=== PATIENT | female | born 1975 | race Two or more races ===

== ENCOUNTER → 2017-02-10 | Outpatient (CLI) | payer OTHER ==
[~2017-02-10] MED LIST: BACTRIM DS 8001 TA1 PO; FLAGYL 500MG.500 MG PO; FLEXERIL10 MG PO; HYDROCODONE 7.51 TAB PO; KEFLEX 500MG.500 MG PO; LEVOTHYROXINE PO; MOTRIN 600MG.600 MG PO; PRENATAL PLUS1 TA1 PO; THYROID; TYLENOL ES500 MG PO; VICODIN 5/500 T1 TAB PO; VOLTAREN75 MG PO
--- NOTE | 2017-02-10 17:20 | RADIOLOGY REPORT PS360 ---
US TRANSVAGINAL PREG Ordering Physician: Josr Gillette MD Patient Age: 41 years: Female HISTORY: BLEEDING EARLY PRGNANCY 3 days bleeding TECHNIQUE: Transvaginal pelvic ultrasoundmw COMPARISON :None relevant to this . FINDINGS Single viable intrauterine gestation. . Amnion chorion identified. Yolk sac well-defined embryo cardiac activity observed. The cervix is long measuring up to 3.1 seem in length. Minimal fluid seems to outline the cervical canal which may reflect this history of bleeding the cervix however appears to be closed at the internal os. No fluid seen here. Average ultrasound age 10 weeks 0 day. JUNIOR by ultrasound 09-08-17 Gestational age 7 weeks 1 day based on LMP [birth year]/22/1969. measurements CRL equals 3.05cm = 10 weeks 0 days. Yolk sac 0.67 cm Heartbeat. 146 BPM Cardiac activity documented on cine loop [place] but adequate Adequate amount of amniotic fluid. Left ovaries more so than left was difficult to visualize. Not well seen. Left ovary but difficult to visualize measuring 4.2 x 2.5 x 3 cm. Likely containing a vague corpus luteum cystl measuring up to 2.4 cm.. Right ovary measuring 3.4 x 2.4 x 2.1 cm. IMPRESSION: Single viable intrauterine gestation Average ultrasound weeks 10 days 0 days based on CRL. . The cervix long and closed internal os. There may be some scant fluid along the mid and distal cervical canal which may reflect this history of bleeding. 1.
== END ==
LOC: RAD 12:08
DX: O20.9 Hemorrhage in early pregnancy, unspecified (principal)

== ENCOUNTER 2017-02-19 16:44 | Emergency (ER) | payer OTHER ==
[~2017-02-19] VITALS: Ht 160 cm; Wt 90.7 kg
--- OUTSIDE RECORDS SUMMARY | 2017-02-19 16:59 | External Medical Summary Rpt | CCD ---
Author Author Conduent Organization Conduent Address Unknown Phone Unavailable Purpose Continuity of Care Document - through 2016
--- OUTSIDE RECORDS SUMMARY | 2017-02-19 16:59 | External Medical Summary Rpt | CCD ---
Author Author , FREDDY HAYES Address Unknown Phone [email or web address] Care Team Providers Care Transplant Worker Name Role Phone LANIE SETH MD, Unavailable Unavailable LANIE SETH MD Purpose Continuity of Care Document - 06-10-2012 through 2016 Problems Code Diagnosis DOS Provider Status 617.9 617.9 07-03-2012 [facility] Allergies, Adverse Reactions, Alerts Type Allergy to substance Adverse Reaction to Substance Substance Reaction Severity NO KNOWN ALLERGIES Unknown Unknown Medications Na ND Rx Da Fi Fi Am Da Di Ph RX Ph St me C No te ll ll ou ys ag ar # ys at rm s nt no ma ic us Or Da si cy ia de te s n re d SO 00 04 0 No DI 40 -2 UM 97 6- Lo 98 20 ng CH 30 13 er LO 9 RI Ac DE ti ve 0. 9% SO ROBERT TI ON Sa 63 04 0 No li 80 -2 ne 70 6- Lo 10 20 ng Fl 07 13 er us 5 h Ac 10 ti ML ve Sy ri ng e ON 00 04 0 No DA 64 -2 NS 16 6- Lo ET 08 20 ng RO 02 13 er N 5 HC Ac L ti 4 ve MG /2 ML AL Mo 00 04 0 No rp 40 -2 hi 91 6- Lo ne 25 20 ng 83 13 er 4M 0 G/ Ac Ml ti ve Sy ri ng e Vital Signs 07-03-2012 20:00 Name Value Interpretat Reference Comment ion Range Body 97.7 [degF] Temperature BP 61 mm[Hg] Diastolic BP Systolic 118 mm[Hg] Heart 64 /min Rate/Pulse O2% 98 % Respiratory 18 /min Rate 07-03-2012 19:19 Name Value Interpretat Reference Comment ion Range Body 97.7 [degF] Temperature 07-03-2012 18:30 Name Value Interpretat Reference Comment ion Range BP 57 mm[Hg] Diastolic BP Systolic 102 mm[Hg] Heart 56 /min Rate/Pulse O2% 98 % Respiratory 18 /min Rate 06-11-2012 00:37 Name Value Interpretat Reference Comment ion Range Body 98.2 [degF] Temperature BP 80 mm[Hg] Diastolic BP Systolic 136 mm[Hg] Heart 70 /min Rate/Pulse O2% 97 % Respiratory 20 /min Rate 06-10-2012 23:52 Name Value Interpretat Reference Comment ion Range BP 81 mm[Hg] Diastolic BP Systolic 134 mm[Hg] Heart 73 /min Rate/Pulse O2% 98 % Respiratory 20 /min Rate Results Labs Lab Lab Date Result Refere Interp Status Commen Order Detail nces retati t Range on CHLAMYDIA AND GONORRHEA TESTING (06-06-2015 10:23) Chlamyd NEGATIV complet ia 016 E ed trachom 10:23 atis rRNA [Presen ce] in Unspeci fied specime n by Probe & target amplifi cation method Neisser NEGATIV complet ia 016 E ed gonorrh 10:23 oeae rRNA [Presen ce] in Unspeci fied specime n by Probe & target amplifi cation method CHLAMYDIA AND GONORRHEA TESTING (06-06-2015 10:23) COLLECT M. F. complet OR 016 MILLER, ed 10:23 FORGING MACHINE HAND ETHNICI HISPANI complet TY 016 C WHITE ed 10:23 KIT complet EXPIRAT 016 6 ed ION 10:23 DATE SYMPTOM NO complet S 016 ed 10:23 REASON REVISIT complet FOR 016 /ANNUAL ed REQUEST 10:23 FAMILY PLANNIN G VISIT SPECIME URINE complet N 016 ed SOURCE 10:23 PREGNAN NO complet T 016 ed 10:23 CHART [id number] complet NUMBER 016 78 ed 10:23 Chlamyd Pending complet ia 016 ed trachom 10:23 atis rRNA [Presen ce] in Unspeci fied specime n by Probe & target amplifi cation method Neisser Pending complet ia 016 ed gonorrh 10:23 oeae rRNA [Presen ce] in Unspeci fied specime n by Probe & target amplifi cation method CHLAMYDIA AND GONORRHEA TESTING (01-19-2013 09:30) Chlamyd -- NEGATIV complet ia 013 E ed trachom 09:30 atis rRNA [Presen ce] in Unspeci fied specime n by Probe & target amplifi cation method Neisser NEGATIV complet ia 013 E ed gonorrh 09:30 oeae rRNA [Presen ce] in Unspeci fied specime n by Probe & target amplifi cation method CHLAMYDIA AND GONORRHEA TESTING (01-19-2013 09:30) COLLECT PT/T.SW complet OR 013 ITZER ed 09:30 RN ETHNICI HISPANI complet TY 013 C WHITE ed 09:30 KIT 05-07-13 complet EXPIRAT 013 ed ION 09:30 DATE SYMPTOM NO complet S 013 ed 09:30 REASON REVISIT complet FOR 013 /ANNUAL ed REQUEST 09:30 FAMILY PLANNIN G VISIT SPECIME URINE complet N 013 ed SOURCE 09:30 PREGNAN NO complet T 013 ed 09:30 CHART NA complet NUMBER 013 ed 09:30 Chlamyd Pending complet ia 013 ed trachom 09:30 atis rRNA [Presen ce] in Unspeci fied specime n by Probe & target amplifi cation method Neisser Pending complet ia 013 ed gonorrh 09:30 oeae rRNA [Presen ce] in Unspeci fied specime n by Probe & target amplifi cation method BASIC METABOLIC PANEL (07-03-2012 18:18) Glucose 105 74-106 complet 013 mg/dL ed Bld-mCn 18:18 c BUN 7 mg/dL 7-18 complet Bld-mCn 013 ed c 18:18 Creat 0.7 0.6-1.0 complet SerPl-m 013 mg/dL ed Cnc 18:18 ESTIMAT 153 50-200 complet ED 013 ML/MIN ed CREATIN 18:18 INE CLEARAN CE GFR 95 59- complet (ESTIMA 013 ML/MIN ed CONCHIS) 18:18 Sodium 139 136-145 complet SerPl-s 013 mmoL/L ed Cnc 18:18 Potassi 07-03-2 3.9 3.5-5.1 complet um 013 mmoL/L ed SerPl-s 18:18 Cnc Chlorid 101 98-107 complet e 013 mmoL/L ed SerPl-s 18:18 Cnc CO2 30 21.0-32 complet SerPl-s 013 mmoL/L .0 ed Cnc 18:18 Calcium 07-03-2 9.1 8.5-10. complet 013 mg/dL 1 ed SerPl-m 18:18 Cnc CBC with AUTO DIFF (07-03-2012 18:18) WBC # 07-03-2 5.7 4.8-10. complet Bld 013 K/MM3 8 ed Auto 18:18 RBC # 07-03-2 4.23 4.2-5.4 complet Bld 013 M/mm3 ed Auto 18:18 Hgb 07-03-2 12.9 12.2-16 complet Bld-mCn 013 g/dL .2 ed c 18:18 Hct Fr 38.4 % 37.0-47 complet Bld 013 .0 ed 18:18 MCV RBC 07-03- 90.7 fl 82.2-97 complet 013 .8 ed 18:18 MCH RBC 07-03-2 30.5 pg 27-31.2 complet Qn 013 ed Auto 18:18 MEAN 07-03- 33.6 31.8-35 complet CORPUSC 013 g/dl .4 ed ULAR 18:18 HGB CONC RDW RBC 07-03-2 13.3 % 11.5-17 complet Auto 013 .5 ed 18:18 Platele 07-03-2 269 142-424 complet t Bld 013 K/mm3 ed Ql 18:18 Manual MEAN 07-03-2 7.1 fl 7.4-10. complet PLATELE 013 4 ed T 18:18 VOLUME Granulo 07-03-2 50.3 % 37.0-80 complet cytes 013 .0 ed Fr Bld 18:18 Auto LYMPH % 07-03-2 38.7 % 10-50.0 complet 013 ed 18:18 Monocyt 07-03-2 7.5 % 1.7-9.3 complet es Fr 013 ed Bld 18:18 Auto Eosinop 04-26-2 2.8 % 0.1-12. complet hil Fr 013 0 ed Bld 18:18 Auto Basophi 04-26-2 0.8 % 0.1-2.0 complet ls Fr 013 ed Bld 18:18 Auto Granulo -26-2 2.9 1.8-7.8 complet cytes # 013 K/mm3 ed Bld 18:18 Auto Lymphoc -26-2 2.2 0.7-4.5 complet ytes Fr 013 K/mm3 ed Bld 18:18 Auto Monocyt 04-26-2 0.4 0.1-1.0 complet es # 013 K/mm3 ed Bld 18:18 Auto Eosinop -26-2 0.2 0.0-0.4 complet hil # 013 K/mm3 ed Bld 18:18 Auto Basophi -26-2 0.1 0-0.2 complet ls # 013 K/MM3 ed Bld 18:18 Auto URINALYSIS/COMPLETE (07-03-2012 18:08) URINE 07-03-2 RED YELLOW complet COLOR 013 ed 18:08 URINE -26-2 CLOUDY CLEAR complet APPEARA 013 ed NCE 18:08 URINE -26-2 NEGATIV NEG complet GLUCOSE 013 E ed - 18:08 DIPSTIC K URINE --2 NEGATIV NEG complet BILIRUB 013 E ed IN - 18:08 DIPSTIC K URINE -26-2 NEGATIV NEG complet KETONE 013 E mg/dL ed 18:08 URINE 07-03-2 1.010 1.005-1 complet SPECIFI 013 UNK .030 ed C 18:08 GRAVITY URINE --2 3+ NEG complet BLOOD 013 ed 18:08 URINE -26-2 6.0 UNK 5.0-8.5 complet PH 013 ed 18:08 URINE --2 1+ NEG complet PROTEIN 013 mg/dL ed - 18:08 DIPSTIC K URINE -26-2 0.2 NEG complet UROBILI 013 E.U./dL ed NOGEN - 18:08 DIPSTIC K URINE -26-2 NEGATIV NEG complet NITRATE 013 E ed - 18:08 DIPSTIC K URINE -26-2 NEGATIV NEG complet LEUK 013 E ed ESTERAS 18:08 E URINE 07-03-2 TNTC 0 complet RBC 013 rbc/hpf ed 18:08 URINE 07-03-2 OCC 0-5 complet SQUAMOU 013 #/hpf ed S CELLS 18:08 B-HCG SerPl EIA 3rd IS-aCnc (06-10-2012 23:45) B-HCG 03-2 44729.3 complet SerPl 013 mIU/ML ed EIA 3rd 23:45 IS-aCnc CBC with AUTO DIFF (06-10-2012 23:45) WBC # 04-03-2 8.7 4.8-10. complet Bld 013 K/MM3 8 ed Auto 23:45 RBC # 04-03-2 4.43 4.2-5.4 complet Bld 013 M/mm3 ed Auto 23:45 Hgb 04-03-2 13.3 12.2-16 complet Bld-mCn 013 g/dL .2 ed c 23:45 Hct Fr -03-2 39.8 % 37.0-47 complet Bld 013 .0 ed 23:45 MCV RBC 04-03-2 89.8 fl 82.2-97 complet 013 .8 ed 23:45 MCH RBC 04-03-2 30.1 pg 27-31.2 complet Qn 013 ed Auto 23:45 MEAN 04-03-2 33.5 31.8-35 complet CORPUSC 013 g/dl .4 ed ULAR 23:45 HGB CONC RDW RBC 04-03-2 13.7 % 11.5-17 complet Auto 013 .5 ed 23:45 Platele 04-03-2 291 142-424 complet t Bld 013 K/mm3 ed Ql 23:45 Manual MEAN 04-03-2 6.7 fl 7.4-10. complet PLATELE 013 4 ed T 23:45 VOLUME Granulo 04-03-2 55.1 % 37.0-80 complet cytes 013 .0 ed Fr Bld 23:45 Auto LYMPH % 04-03-2 34.4 % 10-50.0 complet 013 ed 23:45 Monocyt 04-03-2 6.2 % 1.7-9.3 complet es Fr 013 ed Bld 23:45 Auto Eosinop 04-03-2 3.5 % 0.1-12. complet hil Fr 013 0 ed Bld 23:45 Auto Basophi 04-03-2 0.7 % 0.1-2.0 complet ls Fr 013 ed Bld 23:45 Auto Granulo 04-03-2 4.8 1.8-7.8 complet cytes # 013 K/mm3 ed Bld 23:45 Auto Lymphoc 04-03-2 3.0 0.7-4.5 complet ytes Fr 013 K/mm3 ed Bld 23:45 Auto Monocyt 04-03-2 0.5 0.1-1.0 complet es # 013 K/mm3 ed Bld 23:45 Auto Eosinop 04-03-2 0.3 0.0-0.4 complet hil # 013 K/mm3 ed Bld 23:45 Auto Basophi 04-03-2 0.1 0-0.2 complet ls # 013 K/MM3 ed Bld 23:45 Auto B-HCG Ur Ql (06-10-2012 22:55) B-HCG 04-03-2 POSITIV NEG complet Ur Ql 013 E ed 22:55 URINALYSIS/COMPLETE (06-10-2012 22:55) URINE 04-03-2 RED YELLOW complet COLOR 013 ed 22:55 URINE 04-03-2 Clear CLEAR complet APPEARA 013 ed NCE 22:55 URINE 04-03-2 NEGATIV NEG complet GLUCOSE 013 E ed - 22:55 DIPSTIC K URINE 04-03-2 NEGATIV NEG complet BILIRUB 013 E ed IN - 22:55 DIPSTIC K URINE 04-03-2 NEGATIV NEG complet KETONE 013 E mg/dL ed 22:55 URINE 04-03-2 Less 1.005-1 complet SPECIFI 013 than or .030 ed C 22:55 equal GRAVITY to 1.005 URINE 04-03-2 3+ NEG complet BLOOD 013 ed 22:55 URINE 04-03-2 6.0 UNK 5.0-8.5 complet PH 013 ed 22:55 URINE 04-03-2 1+ NEG complet PROTEIN 013 mg/dL ed - 22:55 DIPSTIC K URINE 04-03-2 0.2 NEG complet UROBILI 013 E.U./dL ed NOGEN - 22:55 DIPSTIC K URINE 04-03-2 NEGATIV NEG complet NITRATE 013 E ed - 22:55 DIPSTIC K URINE 04-03-2 TRACE NEG complet LEUK 013 ed ESTERAS 22:55 E URINE 04-03-2 5-10 0 complet RBC 013 rbc/hpf ed 22:55 URINE 3-5 O complet WBC 013 wbc/hpf ed 22:55 URINE 3-5 0-5 complet SQUAMOU 013 #/hpf ed S CELLS 22:55 URINE 1+ O complet BACTERI 013 ed A 22:55 PROFILE (06-10-2012 10:30) Hepatit NON-DELFINO complet is B 013 CTIVE ed virus 10:30 surface Ag [Presen ce] in Serum by Immunoa ssay PROFILE (06-10-2012 10:30) Rubella 4.09 complet virus 013 INDEX ed IgG Ab 10:30 [Units/ volume] in Serum by Immunoa ssay RUB CONSIST >=1.1 complet INTERPR 013 ENT INDEX ed ETATION 10:30 WITH IMMUNIT Y- IMMUNIT Y PROFILE (06-10-2012 10:30) Trepone NON-DELFINO complet ma 013 CTIVE ed pallidu 10:30 m IgG Ab [Presen ce] in Serum by Immunoa ssay PROFILE (06-10-2012 10:30) COLLECT NA complet OR 013 ed 10:30 ETHNICI HISPANI complet TY 013 C ed 10:30 SPECIME BLOOD complet N 013 ed SOURCE 10:30 GESTATI 7 complet ON 013 ed 10:30 CHART NA complet NUMBER 013 ed 10:30 Hepatit Pending complet is B 013 ed virus 10:30 surface Ag [Presen ce] in Serum by Immunoa ssay Trepone Pending complet ma 013 ed pallidu 10:30 m IgG Ab [Presen ce] in Serum by Immunoa ssay Rubella Pending complet virus 013 ed IgG Ab 10:30 [Units/ volume] in Serum by Immunoa ssay Encounters Encounter Start End Date Code Location Performer Type Date Emergency TRACEY SETH MD (ER) 3 17:53 3 20:05 [facility] TRACEY Siegel MD (ER) 3 23:19 3 00:41 [facility]
--- OUTSIDE RECORDS SUMMARY | 2017-02-19 16:59 | External Medical Summary Rpt | CCD ---
Demographics Preferred Language Marshallese Marital Status Unknown Shinto Affiliation Unknown Race Unknown Ethnic Group Unknown Author Author , FREDDY HAYES Address Unknown Phone [email or web address] Immunization Name Date Rout CVX Reac Dose Comm Prov Is Faci e tion ent ider Refu lity Give sed n Tdap 06-3 115 999 Hist H149 No H149 , 0-20 oric Adso 06 al rbed Info rmat ion - Sour ce Unsp ecif ied
--- OUTSIDE RECORDS SUMMARY | 2017-02-19 16:59 | External Medical Summary Rpt | CCD ---
Author Author , FREDDY HAYES Address Unknown Phone [email or web address] Care Team Providers Care High Density Press Laborer Name Role Phone LANIE SETH MD, Unavailable Unavailable LANIE SETH MD Purpose Continuity of Care Document - 06-10-2012 through 2016 Problems Code Diagnosis DOS Provider Status 617.9 617.9 07-03-2012 [facility] Allergies, Adverse Reactions, Alerts Type Allergy to [...] F. 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 TRACEY Siegel MD (ER) 3 23:19 3 00:41 [facility]
--- OUTSIDE RECORDS SUMMARY | 2017-02-19 16:59 | External Medical Summary Rpt | CCD ---
Demographics Preferred Language Ecuadorean Marital Status Unknown Confucianist Affiliation Unknown Race Unknown Ethnic Group Unknown Author Author , FREDDY HAYES Address Unknown Phone [email or web address] Immunization Name Date Rout CVX Reac Dose Comm Prov Is Faci e tion ent ider Refu lity Give sed n Tdap 06-3 115 999 Hist H149 No H149 , 0-20 oric Adso 06 al rbed Info rmat ion - Sour ce Unsp ecif ied
--- OUTSIDE RECORDS SUMMARY | 2017-02-19 17:00 | External Medical Summary Rpt ---
Author Author FREDDY Augustine, [employer] Organization [employer] Address Unknown Phone Unavailable Results CHLAMYDIA AND GONORRHEA TESTING Observa Value Referen Units Interpr Notes Date tion ce etation Range COLLECT M. F. 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 tion in tion in tion in tion in 10:23 source source source source AM data data data data ETHNICI HISPANI No No No No Jun 05 TY C WHITE informa informa informa informa 2016 tion in tion in tion in tion in 10:23 source source source source AM data data data data KIT No No No No Jun 05 EXPIRAT 6 informa informa informa informa 2016 ION tion in tion in tion in tion in 10:23 DATE source source source source AM data data data data SYMPTOM NO No No No No Jun 05 S informa informa informa informa 2016 tion in tion in tion in tion in 10:23 source source source source AM data data data data REASON REVISIT No No No No Jun 05 FOR /ANNUAL informa informa informa informa 2016 REQUEST FAMILY tion in tion in tion in tion in 10:23 source source source source AM PLANNIN data data data data G VISIT SPECIME URINE No No No No Jun 05 N informa informa informa informa 2016 SOURCE tion in tion in tion in tion in 10:23 source source source source AM data data data data PREGNAN NO No No No No Jun 05 T informa informa informa informa 2016 tion in tion in tion in tion in 10:23 source source source source AM data data data data CHART [id number] No No No No Jun 05 NUMBER 78 informa informa informa informa 2016 tion in tion in tion in tion in 10:23 source source source source AM data data data data Chlamyd NEGATIV No No No NEGATIV Jun 05 ia E informa informa informa E 2016 trachom tion in tion in tion in RESULT= 10:23 atis source source source WITHIN AM rRNA data data data NORMAL [Presen ce] in LIMITSP Unspeci OSITIVE fied specime RESULT= n by Probe & ABNORMA target LEQUIVO MAY amplifi RESULT= cation method INDETER MINATEU NSATISF ACTORY RESULT= INVALID Neisser NEGATIV No No No NEGATIV Jun 05 ia E informa informa informa E 2016 gonorrh tion in tion in tion in RESULT= 10:23 oeae source source source WITHIN AM rRNA data data data NORMAL [Presen ce] in LIMITSP Unspeci OSITIVE fied specime RESULT= n by Probe & ABNORMA target LEQUIVO MAY amplifi RESULT= cation method INDETER MINATEU NSATISF ACTORY RESULT= INVALID THE APTIMA COMBO 2 ASSAY IS NOT INTENDE D FOR THE EVALUAT ION OF SUSPECT EDSEXUA L ABUSE OR FOR OTHER MEDICO- LEGAL INDICAT IONS. FOR THOSE PATIENT S FORWHOM A FALSE POSITIV E RESULT MAY HAVE ADVERSE PSYCHO- SOCIAL IMPACT, [facility] MM[facility] RET[facility] NG.\.br \This report contain s patient informa tion that must be protect ed in accorda nce with the Health Insuran ce Portabi lity and Account ability Act. CHLAMYDIA AND GONORRHEA TESTING Observa Value Referen Units Interpr Notes Date tion ce etation Range COLLECT M. F. 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 tion in tion in tion in tion in 10:23 source source source source AM data data data data ETHNICI HISPANI No No No No Jun 05 TY C WHITE informa informa informa informa 2016 tion in tion in tion in tion in 10:23 source source source source AM data data data data KIT No No No No Jun 05 EXPIRAT 6 informa informa informa informa 2016 ION tion in tion in tion in tion in 10:23 DATE source source source source AM data data data data SYMPTOM NO No No No No Jun 05 S informa informa informa informa 2016 tion in tion in tion in tion in 10:23 source source source source AM data data data data REASON REVISIT No No No No Jun 05 FOR /ANNUAL informa informa informa informa 2016 REQUEST FAMILY tion in tion in tion in tion in 10:23 source source source source AM PLANNIN data data data data G VISIT SPECIME URINE No No No No Jun 05 N informa informa informa informa 2016 SOURCE tion in tion in tion in tion in 10:23 source source source source AM data data data data PREGNAN NO No No No No Jun 05 T informa informa informa informa 2016 tion in tion in tion in tion in 10:23 source source source source AM data data data data CHART [id number] No No No No Jun 05 NUMBER 78 informa informa informa informa 2016 tion in tion in tion in tion in 10:23 source source source source AM data data data data Chlamyd Pending No No No No Jun 05 ia informa informa informa informa 2016 trachom tion in tion in tion in tion in 10:23 atis source source source source AM rRNA data data data data [Presen ce] in Unspeci fied specime n by Probe & target amplifi cation method Neisser Pending No No No \.br\Th Jun 05 ia informa informa informa is 2016 gonorrh tion in tion in tion in report 10:23 oeae source source source contain AM rRNA data data data s [Presen patient ce] in Unspeci informa fied tion specime that n by must be Probe & target protect ed in amplifi accorda cation nce method with the Health Insuran ce Portabi lity and Account ability Act. CHLAMYDIA AND GONORRHEA TESTING Observa Value Referen Units Interpr Notes Date tion ce etation Range COLLECT PT/T.SW No No No No Jan 19 OR ITZER informa informa informa informa 2013 RN tion in tion in tion in tion in 9:30 AM source source source source data data data data ETHNICI HISPANI No No No No Jan 19 TY C WHITE informa informa informa informa 2013 tion in tion in tion in tion in 9:30 AM source source source source data data data data KIT 2-28-14 No No No No Jan 19 EXPIRAT informa informa informa informa 2013 ION tion in tion in tion in tion in 9:30 AM DATE source source source source data data data data SYMPTOM NO No No No No Jan 19 S informa informa informa informa 2013 tion in tion in tion in tion in 9:30 AM source source source source data data data data REASON REVISIT No No No No Jan 19 FOR /ANNUAL informa informa informa informa 2013 REQUEST FAMILY tion in tion in tion in tion in 9:30 AM source source source source PLANNIN data data data data G VISIT SPECIME URINE No No No No Jan 19 N informa informa informa informa 2013 SOURCE tion in tion in tion in tion in 9:30 AM source source source source data data data data PREGNAN NO No No No No Jan 19 T informa informa informa informa 2013 tion in tion in tion in tion in 9:30 AM source source source source data data data data CHART NA No No No No Jan 19 NUMBER informa informa informa informa 2013 tion in tion in tion in tion in 9:30 AM source source source source data data data data Chlamyd NEGATIV No No No NEGATIV Jan 19 ia E informa informa informa E 2013 trachom tion in tion in tion in RESULT= 9:30 AM atis source source source WITHIN rRNA data data data NORMAL [Presen ce] in LIMITSP Unspeci OSITIVE fied specime RESULT= n by Probe & ABNORMA target LEQUIVO MAY amplifi RESULT= cation method INDETER MINATEU NSATISF ACTORY RESULT= INVALID Neisser NEGATIV No No No NEGATIV Jan 19 ia E informa informa informa E 2013 gonorrh tion in tion in tion in RESULT= 9:30 AM oeae source source source WITHIN rRNA data data data NORMAL [Presen ce] in LIMITSP Unspeci OSITIVE fied specime RESULT= n by Probe & ABNORMA target LEQUIVO MAY amplifi RESULT= cation method INDETER MINATEU NSATISF ACTORY RESULT= INVALID THE APTIMA COMBO 2 ASSAY IS NOT INTENDE D FOR THE EVALUAT ION OF SUSPECT EDSEXUA L ABUSE OR FOR OTHER MEDICO- LEGAL INDICAT IONS. FOR THOSE PATIENT S FORWHOM A FALSE POSITIV E RESULT MAY HAVE ADVERSE PSYCHO- SOCIAL IMPACT, [facility] MM[facility]DS RETESTI NG.\.br \This report contain s patient informa tion that must be protect ed in accorda nce with the Health Insuran ce Portcelso lity and Account ability Act. CHLAMYDIA AND GONORRHEA TESTING Observa Value Referen Units Interpr Notes Date tion ce etation Range COLLECT PT/T.SW No No No No Jan 19 OR ITZER informa informa informa informa 2013 RN tion in tion in tion in tion in 9:30 AM source source source source data data data data ETHNICI HISPANI No No No No Jan 19 TY C WHITE informa informa informa informa 2013 tion in tion in tion in tion in 9:30 AM source source source source data data data data KIT 2-28-14 No No No No Jan 19 EXPIRAT informa informa informa informa 2013 ION tion in tion in tion in tion in 9:30 AM DATE source source source source data data data data SYMPTOM NO No No No No Jan 19 S informa informa informa informa 2013 tion in tion in tion in tion in 9:30 AM source source source source data data data data REASON REVISIT No No No No Jan 19 FOR /ANNUAL informa informa informa informa 2013 REQUEST FAMILY tion in tion in tion in tion in 9:30 AM source source source source PLANNIN data data data data G VISIT SPECIME URINE No No No No Jan 19 N informa informa informa informa 2013 SOURCE tion in tion in tion in tion in 9:30 AM source source source source data data data data PREGNAN NO No No No No Jan 19 T informa informa informa informa 2013 tion in tion in tion in tion in 9:30 AM source source source source data data data data CHART NA No No No No Jan 19 NUMBER informa informa informa informa 2013 tion in tion in tion in tion in 9:30 AM source source source source data data data data Chlamyd Pending No No No No Jan 19 ia informa informa informa informa 2013 trachom tion in tion in tion in tion in 9:30 AM atis source source source source rRNA data data data data [Presen ce] in Unspeci fied specime n by Probe & target amplifi cation method Neisser Pending No No No \.br\Jan 19 ia informa informa informa is 2013 gonorrh tion in tion in tion in report 9:30 AM oeae source source source contain rRNA data data data s [Presen patient ce] in Unspeci informa fied tion specime that n by must be Probe & target protect ed in amplifi accorda cation nce method with the Health Insuran ce Portabi lity and Account ability Act. PROFILE Observa Value Referen Units Interpr Notes Date tion ce etation Range COLLECT NA No No No No Apr 3 OR informa informa informa informa 2013 tion in tion in tion in tion in 10:30 source source source source AM data data data data ETHNICI HISPANI No No No No Apr 3 TY C informa informa informa informa 2013 tion in tion in tion in tion in 10:30 source source source source AM data data data data SPECIME BLOOD No No No No Apr 3 N informa informa informa informa 2013 SOURCE tion in tion in tion in tion in 10:30 source source source source AM data data data data GESTATI 7 No No No No Apr 3 ON informa informa informa informa 2013 tion in tion in tion in tion in 10:30 source source source source AM data data data data CHART NA No No No No Apr 3 NUMBER informa informa informa informa 2013 tion in tion in tion in tion in 10:30 source source source source AM data data data data Hepatit NON-DELFINO No No No METHOD Apr 3 is B CTIVE informa informa informa OF 2013 virus tion in tion in tion in ANALYSI 10:30 surface source source source S: AM Ag data data data EIANORM [Presen AL ce] in RANGE: Serum NON by REACTIV Immunoa E ssay Trepone NON-DELFINO No No No METHOD Apr 3 ma CTIVE informa informa informa OF 2013 pallidu tion in tion in tion in ANALYSI 10:30 m IgG source source source S: AM Ab data data data EIANORM [Presen AL ce] in RANGE: Serum NON-DELFINO by CTIVE Immunoa ssay Rubella 4.09 No No No METHOD Apr 3 virus INDEX informa informa informa OF 2013 IgG Ab tion in tion in tion in ANALYSI 10:30 [Units/ source source source S: EIA AM volume] data data data in Serum by Immunoa ssay RUB CONSIST >=1.1 No No \.br\Th Apr 3 INTERPR ENT INDEX informa informa is 2013 ETATION WITH tion in tion in report 10:30 IMMUNIT source source contain AM Y- data data s IMMUNIT patient Y informa tion that must be protect ed in accorda nce with the Health Insuran ce Portabi lity and Account ability Act. PROFILE Observa Value Referen Units Interpr Notes Date tion ce etation Range COLLECT NA No No No No Jun 3 OR informa informa informa informa 2013 tion in tion in tion in tion in 10:30 source source source source AM data data data data ETHNICI HISPANI No No No No Jun 3 TY C informa informa informa informa 2013 tion in tion in tion in tion in 10:30 source source source source AM data data data data SPECIME BLOOD No No No No Jun 3 N informa informa informa informa 2013 SOURCE tion in tion in tion in tion in 10:30 source source source source AM data data data data GESTATI 7 No No No No Jun 3 ON informa informa informa informa 2013 tion in tion in tion in tion in 10:30 source source source source AM data data data data CHART NA No No No No Jun 3 NUMBER informa informa informa informa 2013 tion in tion in tion in tion in 10:30 source source source source AM data data data data Hepatit Pending No No No No Jun 3 is B informa informa informa informa 2013 virus tion in tion in tion in tion in 10:30 surface source source source source AM Ag data data data data [Presen ce] in Serum by Immunoa ssay Trepone NON-DELFINO No No No METHOD Apr 3 ma CTIVE informa informa informa OF 2013 pallidu tion in tion in tion in ANALYSI 10:30 m IgG source source source S: AM Ab data data data EIANORM [Presen AL ce] in RANGE: Serum NON-DELFINO by CTIVE Immunoa ssay Rubella 4.09 No No No METHOD Apr 3 virus INDEX informa informa informa OF 2013 IgG Ab tion in tion in tion in ANALYSI 10:30 [Units/ source source source S: EIA AM volume] data data data in Serum by Immunoa ssay RUB CONSIST >=1.1 No No \.br\Th Apr 3 INTERPR ENT INDEX informa informa is 2013 ETATION WITH tion in tion in report 10:30 IMMUNIT source source contain AM Y- data data s IMMUNIT patient Y informa tion that must be protect ed in accorda nce with the Health Insuran ce Portabi lity and Account ability Act. PROFILE Observa Value Referen Units Interpr Notes Date tion ce etation Range COLLECT NA No No No No Apr 3 OR informa informa informa informa 2013 tion in tion in tion in tion in 10:30 source source source source AM data data data data ETHNICI HISPANI No No No No Apr 3 TY C informa informa informa informa 2013 tion in tion in tion in tion in 10:30 source source source source AM data data data data SPECIME BLOOD No No No No Apr 3 N informa informa informa informa 2013 SOURCE tion in tion in tion in tion in 10:30 source source source source AM data data data data GESTATI 7 No No No No Apr 3 ON informa informa informa informa 2013 tion in tion in tion in tion in 10:30 source source source source AM data data data data CHART NA No No No No Apr 3 NUMBER informa informa informa informa 2013 tion in tion in tion in tion in 10:30 source source source source AM data data data data Hepatit Pending No No No No Apr 3 is B informa informa informa informa 2013 virus tion in tion in tion in tion in 10:30 surface source source source source AM Ag data data data data [Presen ce] in Serum by Immunoa ssay Trepone NON-DELFINO No No No METHOD Apr 3 [address] CTIVE informa informa informa OF 2013 pallidu tion in tion in tion in ANALYSI 10:30 m IgG source source source S: AM Ab data data data EIANORM [Presen AL ce] in RANGE: Serum NON-DELFINO by CTIVE Immunoa ssay Rubella 4.09 No No No METHOD Apr 3 virus INDEX informa informa informa OF 2013 IgG Ab tion in tion in tion in ANALYSI 10:30 [Units/ source source source S: EIA AM volume] data data data in Serum by Immunoa ssay RUB CONSIST >=1.1 No No \.br\Th Apr 3 INTERPR ENT INDEX informa informa is 2013 ETATION WITH tion in tion in report 10:30 IMMUNIT source source contain AM Y- data data s IMMUNIT patient Y informa tion that must be protect ed in accorda nce with the Health Insuran ce Portabi lity and Account ability Act. PROFILE Observa Value Referen Units Interpr Notes Date tion ce etation Range COLLECT NA No No No No Apr 3 OR informa informa informa informa 2013 tion in tion in tion in tion in 10:30 source source source source AM data data data data ETHNICI HISPANI No No No No Apr 3 TY C informa informa informa informa 2013 tion in tion in tion in tion in 10:30 source source source source AM data data data data SPECIME BLOOD No No No No Apr 3 N informa informa informa informa 2013 SOURCE tion in tion in tion in tion in 10:30 source source source source AM data data data data GESTATI 7 No No No No Apr 3 ON informa informa informa informa 2013 tion in tion in tion in tion in 10:30 source source source source AM data data data data CHART NA No No No No Apr 3 NUMBER informa informa informa informa 2013 tion in tion in tion in tion in 10:30 source source source source AM data data data data Hepatit Pending No No No No Jun 3 is B informa informa informa informa 2013 virus tion in tion in tion in tion in 10:30 surface source source source source AM Ag data data data data [Presen ce] in Serum by Immunoa ssay Trepone NON-DELFINO No No No METHOD Apr 3 [address] CTIVE informa informa informa OF 2013 pallidu tion in tion in tion in ANALYSI 10:30 m IgG source source source S: AM Ab data data data EIANORM [Presen AL ce] in RANGE: Serum NON-DELFINO by CTIVE Immunoa ssay Rubella Pending No No No \.br\Jun 10 virus informa informa informa is 2013 IgG Ab tion in tion in tion in report 10:30 [Units/ source source source contain AM volume] data data data s in patient Serum by informa Immunoa tion ssay that must be protect ed in adela wve with the Health Insuran ce Heath lity and Account ability Act. PROFILE Observa Value Referen Units Interpr Notes Date tion ce etation Range COLLECT NA No No No No Jun 3 OR informa informa informa informa 2013 tion in tion in tion in tion in 10:30 source source source source AM data data data data ETHNICI HISPANI No No No No Jun 3 TY C informa informa informa informa 2013 tion in tion in tion in tion in 10:30 source source source source AM data data data data SPECIME BLOOD No No No No Jun 3 N informa informa informa informa 2013 SOURCE tion in tion in tion in tion in 10:30 source source source source AM data data data data GESTATI 7 No No No No Jun 3 ON informa informa informa informa 2013 tion in tion in tion in tion in 10:30 source source source source AM data data data data CHART NA No No No No Jun 3 NUMBER informa informa informa informa 2013 tion in tion in tion in tion in 10:30 source source source source AM data data data data Hepatit Pending No No No No Jun 10 is B informa informa informa informa 2013 virus tion in tion in tion in tion in 10:30 surface source source source source AM Ag data data data data [Presen ce] in Serum by Immunoa ssay Trepone Pending No No No No Jun 10 ma informa informa informa informa 2013 pallidu tion in tion in tion in tion in 10:30 m IgG source source source source AM Ab data data data data [Presen ce] in Serum by Immunoa ssay Rubella Pending No No No \.br\Jun 10 virus informa informa informa is 2013 IgG Ab tion in tion in tion in report 10:30 [Units/ source source source contain AM volume] data data data s in patient Serum by informa Immunoa [place] ssay that must be protect ed in accorda nce with the Health Insuran julian[place] lity and Account ability Act.
--- OUTSIDE RECORDS SUMMARY | 2017-02-19 17:00 | External Medical Summary Rpt ---
Author Author FREDDY Augustine, [employer] Organization [employer] Address Unknown Phone Unavailable Results CHLAMYDIA AND GONORRHEA TESTING Observa Value Referen Units Interpr Notes Date tion ce etation Range COLLECT M. F. No No No No Jun 05 OR MILLER, informa informa informa informa 2016 TESTER V[employer] EQUIPMENT tion in tion in tion in tion [...] MAY HAVE ADVERSE PSYCHO- SOCIAL IMPACT, [facility] MM[facility]DS RETESTI NG.\.br \This report contain s patient informa tion that must be protect ed in accorda nce with the Health Insuran ce Portabi lity and Account ability Act. CHLAMYDIA AND GONORRHEA TESTING Observa Value Referen Units Interpr Notes Date tion ce etation Range COLLECT M. F. No No No No Jun 05 OR MILLER, informa informa informa informa 2016 TESTER VIBRATOR EQUIPMENT tion in tion in tion in tion [...] MAY HAVE ADVERSE PSYCHO- SOCIAL IMPACT, [facility] MMENDS RETESTI NG.\.br \This report contain s [...] ssay that must be protect ed [place] with the Health Insuran ce Heath lity [...]
--- NOTE | 2017-02-19 17:17 | Emergency Room Report ---
History of Present Illness Time Seen by [id number] Presenting Problem in Triage Pt arrived:Walked Presenting Problem:PT ADVISES SHE IS PASSING BLOOD FROM HER RECTUM. 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 N Clinical Suspician of Infection? N Mental Status: 1 - Regular (Normal Baseline) Sepsis Risk:Low Sepsis Risk Have you (or family members/close friends) recently traveled outside the [place]? N If Yes, where/when: Have you had exposure to infectious disease within the past month? TB? Other? Specify: Source patient, RN notes reviewed, family, RN/MD Exam Limitations no limitations Comment This is a 41-year-old female, 11 weeks , presented emergency room with 2 days of lower gastrointestinal bleed. Patient advised that she has seen specks of blood mixed with stool in the commode. Patient also has been having some lower abdominal cramping. She has been improving just seems although to avoid constipation. She denies any contractions, vaginal bleeding, vaginal discharge. ALLERGIES Coded Allergies: No Known Allergies (02/19/17) Home Medications Reported Medications [LEVOTHYROXINE] 1 MCG PO DAILY History Medical History General CAD? No Angina: No [place]: No Hypertension? No Hyperlipidemia? No CHF? No DVT? No PE? No COPD? No Asthma? No Anemia? No GERD? No Gastric ulcers? No GI Bleed? No Hernia? No Thyroid Problems? No Hypothyroidism? No CVA? No Seizures? No Diabetes? No Renal Insuffiency? No End Stage Renal Disease? No UTI? No Stones? No BPH? No GB Disease: No Nephritic Syndrome? No Asplenia? No Hepatitis? No Sickle Cell Disease? No Arthritis? No Migraines? No Cataracts? No Glaucoma? No MRSA? No HIV? No TB? No Anxiety? No Depression? No Cancer? No More? 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 LMP 2 Months Ago Est.Due Date SEPTEMBER [address] BALDWIN Family History Family Hx Diabetes Yes CAD Yes Hypertension Yes Hyperlipidemia No Cancer No TB No Social History Smoking Hx Smoker: Never Smoker Tobacco: No Alcohol Alcohol: No Review of Systems All Other Systems Reviewed and Negative Gastrointestinal other (lower gastrointestinal bleed) Physical Exam Vital Signs Vital Signs Date Time Temp Pulse Resp B/P Pulse O2 O2 Flow FiO2 Ox Delivery Rate 02/19 1915 98.0 82 18 145/104 100 02/19 1650 98.4 96 16 132/98 98 General Appearance normal appearance, WD/WN, no apparent distress Respiratory Status Yes: trachea midline, chest symmetrical, non tender chest. No: respiratory distress. Lung Sounds bilateral: normal breath sounds, lungs clear. Cardiovascular normal exam, regular rate/rhythm, no peripheral edema, no gallop, no JVD, no murmur, no rub, normal peripheral pulses Gastrointestinal normal bowel sounds, normal exam, non tender, soft, no organomegaly, abdomen consistent with stated age of station Extremities non-tender, normal range of motion, normal inspection Rectal normal exam, heme positive stool, normal sphincter tone Nurse present during exam? 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 No Comment 1844-case discussed with patient's OB, Dr. Huber, advised the patient presentation and findings. Dr. Huber recommended patient to be started on over- the-counter Colace, and have her follow-up with his office in the morning. Advised patient if her gastrointestinal bleed does not subside to follow-up with one of the general surgeons or gastrointestinal specialist for a colonoscopy. Results/Orders Laboratory Tests 02/19/170: Sodium 135 L, Potassium 4.0, Chloride 101, Carbon Dioxide 27, BUN 6 L, Creatinine 0.5 L, Estimated Creat Clear 216 H, Estimated GFR (MDRD) 137, Glucose 97, Calcium 9.5, Total Bilirubin 0.3, AST 34, ALT 37, Alkaline Phosphatase 76, Total Protein 8.3 H, Albumin 3.9, Globulin 4.4 H, Albumin/ Globulin Ratio 0.9 L, WBC 8.8, RBC 4.91, Hgb 14.8, Hct 43.9, MCV 89.4, RDW 13.0 , Plt Count 313, MPV 7.0 L, Gran % 60.3, Gran # 5.3, Lymphocytes % 30.8, Monocytes % 6.6, Eosinophils % 1.7, Basophils % 0.7, Lymphocytes # 2.7, Monocytes # 0.6, Eosinophils # 0.2, Basophils # 0.1, PUBS MCHC 33.6, MCH 30.1, Stool Occult Blood POSITIVE, Urine Color YELLOW, Urine Appearance CLEAR, Urine pH 6.0, Ur Specific [place] 1.010, Urine Protein NEGATIVE, Urine Ketones NEGATIVE, Urine Blood NEGATIVE, Urine Nitrate NEGATIVE, Urine Bilirubin NEGATIVE , Urine Urobilinogen 0.2, Ur Leukocyte Esterase NEGATIVE, Urine RBC NONE, Urine WBC OCC, Ur Squamous Epith Cells 5-10, Urine Bacteria TRACE, Urine Glucose NEGATIVE Orders Procedure Date/time Status GEN NSG/PT REQ (NOT FOR MEDS!) 02/19 1859 Active URINALYSIS/COMPLETE 02/19 1809 Complete STOOL OCCULT BLOOD 02/19 1809 Complete CBC WITH AUTO DIFF 02/19 1809 Complete CHEM 12 PROFILE 02/19 1809 Complete Departure Departure Time of Disposition 1851 Disposition DC Home or Self Care(routine) Clinical Impression Primary Impression: GI bleed Qualifiers: GI bleed type/associated pathology: unspecified gastrointestinal hemorrhage type Qualified Code: K92.2 - Gastrointestinal hemorrhage, unspecified Secondary Impressions: Hemorrhoid Qualifiers: Hemorrhoid type: first degree Qualified Code: K64.0 - First degree hemorrhoids Condition STABLE Referrals Rosa HOFF,Seth WALL,BARRINGTON Odonnell MD, Elida DINH MD,ROSANA Barrera Patient Instructions DI for Hemorrhoids, Gastrointestinal Bleeding Additional Instructions Please follow-up with one of the specialist listed below, at your earliest convenience, for additional outpatient workup. Please follow-up with your ObGyn as well, did not next 2 days. Please avoid constipation. May take OTC Colace, Miralax for this purpose. Discharge Counseling Counseled pt/family regarding diagnosis, test results, medications/RX, home care, follow up needs Comment Please follow-up with one of the specialist listed below, at your earliest convenience, for additional outpatient workup. Please follow-up with your ObGyn as well, did not next 2 days. Please avoid constipation. ED Critical Care Critical Care No at [phone]
--- NOTE | 2017-02-19 17:17 | Emergency Room Report ---
History of Present Illness Time Seen by [id number] Presenting Problem in Triage Pt arrived:Walked Presenting Problem:PT ADVISES SHE IS PASSING BLOOD FROM HER RECTUM. 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 N Clinical Suspician of Infection? N Mental Status: 1 - Regular (Normal Baseline) Sepsis Risk:Low Sepsis Risk Have you (or family members/close friends) recently traveled outside the [place]? N If Yes, where/when: Have you had exposure to infectious disease within the past month? TB? Other? Specify: Source patient, RN notes reviewed, family, RN/MD Exam Limitations no limitations Comment This is a 41-year-old female, 11 weeks , presented emergency room with 2 days of lower gastrointestinal bleed. Patient advised that she has seen specks of blood mixed with stool in the commode. Patient also has been having some lower abdominal cramping. She has been improving just seems although to avoid constipation. She denies any contractions, vaginal bleeding, vaginal discharge. ALLERGIES Coded Allergies: No Known Allergies (02/19/17) Home Medications Reported Medications [LEVOTHYROXINE] 1 MCG PO DAILY History Medical History General CAD? No Angina: No [place]: No Hypertension? No Hyperlipidemia? No CHF? No DVT? No PE? No COPD? No Asthma? No Anemia? No GERD? No Gastric ulcers? No GI Bleed? No Hernia? No Thyroid Problems? No Hypothyroidism? No CVA? No Seizures? No Diabetes? No Renal Insuffiency? No End Stage Renal Disease? No UTI? No Stones? No BPH? No GB Disease: No Nephritic Syndrome? No Asplenia? No Hepatitis? No Sickle Cell Disease? No Arthritis? No Migraines? No Cataracts? No Glaucoma? No MRSA? No HIV? No TB? No Anxiety? No Depression? No Cancer? No More? 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 2 Months Ago Est.Due Date SEPTEMBER [address] BALDWIN Family History Family Hx Diabetes Yes CAD Yes Hypertension Yes Hyperlipidemia No Cancer No TB No Social History Smoking Hx Smoker: Never Smoker Tobacco: No Alcohol Alcohol: No Review of Systems All Other Systems Reviewed and Negative Gastrointestinal other (lower gastrointestinal bleed) Physical Exam Vital Signs Vital Signs Date Time Temp Pulse Resp B/P Pulse O2 O2 Flow FiO2 Ox Delivery Rate 02/19 1915 98.0 82 18 145/104 100 02/19 1650 98.4 96 16 132/98 98 General Appearance normal appearance, WD/WN, no apparent distress Respiratory Status Yes: trachea midline, chest symmetrical, non tender chest. No: respiratory distress. Lung Sounds bilateral: normal breath sounds, lungs clear. Cardiovascular normal exam, regular rate/rhythm, no peripheral edema, no gallop, no JVD, no murmur, no rub, normal peripheral pulses Gastrointestinal normal bowel sounds, normal exam, non tender, soft, no organomegaly, abdomen consistent with stated age of station Extremities non-tender, normal range of motion, normal inspection Rectal normal exam, heme positive stool, normal sphincter tone Nurse present during exam? 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 No Comment 1844-case discussed with patient's OB, Dr. Huber, advised the patient presentation and findings. Dr. Huber recommended patient to be started on over- the-counter Colace, and have her follow-up with his office in the morning. Advised patient if her gastrointestinal bleed does not subside to follow-up with one of the general surgeons or gastrointestinal specialist for a colonoscopy. Results/Orders Laboratory Tests 02/19/170: Sodium 135 L, Potassium 4.0, Chloride 101, Carbon Dioxide 27, BUN 6 L, Creatinine 0.5 L, Estimated Creat Clear 216 H, Estimated GFR (MDRD) 137, Glucose 97, Calcium 9.5, Total Bilirubin 0.3, AST 34, ALT 37, Alkaline Phosphatase 76, Total Protein 8.3 H, Albumin 3.9, Globulin 4.4 H, Albumin/ Globulin Ratio 0.9 L, WBC 8.8, RBC 4.91, Hgb 14.8, Hct 43.9, MCV 89.4, RDW 13.0 , Plt Count 313, MPV 7.0 L, Gran % 60.3, Gran # 5.3, Lymphocytes % 30.8, Monocytes % 6.6, Eosinophils % 1.7, Basophils % 0.7, Lymphocytes # 2.7, Monocytes # 0.6, Eosinophils # 0.2, Basophils # 0.1, PUBS MCHC 33.6, MCH 30.1, Stool Occult Blood POSITIVE, Urine Color YELLOW, Urine Appearance CLEAR, Urine pH 6.0, Ur Specific [place] 1.010, Urine Protein NEGATIVE, Urine Ketones NEGATIVE, Urine Blood NEGATIVE, Urine Nitrate NEGATIVE, Urine Bilirubin NEGATIVE , Urine Urobilinogen 0.2, Ur Leukocyte Esterase NEGATIVE, Urine RBC NONE, Urine WBC OCC, Ur Squamous Epith Cells 5-10, Urine Bacteria TRACE, Urine Glucose NEGATIVE Orders Procedure Date/time Status GEN NSG/PT REQ (NOT FOR MEDS!) 02/19 1859 Active URINALYSIS/COMPLETE 02/19 1809 Complete STOOL OCCULT BLOOD 02/19 1809 Complete CBC WITH AUTO DIFF 02/19 1809 Complete CHEM 12 PROFILE 02/19 1809 Complete Departure Departure Time of Disposition 1851 Disposition DC Home or Self Care(routine) Clinical Impression Primary Impression: GI bleed Qualifiers: GI bleed type/associated pathology: unspecified gastrointestinal hemorrhage type Qualified Code: K92.2 - Gastrointestinal hemorrhage, unspecified Secondary Impressions: Hemorrhoid Qualifiers: Hemorrhoid type: first degree Qualified Code: K64.0 - First degree hemorrhoids Condition STABLE Referrals Rosa HOFF,Seth WALL,BARRINGTON Odonnell MD, Elida DINH MD,ROSANA Barrera Patient Instructions DI for Hemorrhoids, Gastrointestinal Bleeding Additional Instructions Please follow-up with one of the specialist listed below, at your earliest convenience, for additional outpatient workup. Please follow-up with your ObGyn as well, did not next 2 days. Please avoid constipation. May take OTC Colace, Miralax for this purpose. Discharge Counseling Counseled pt/family regarding diagnosis, test results, medications/RX, home care, follow up needs Comment Please follow-up with one of the specialist listed below, at your earliest convenience, for additional outpatient workup. Please follow-up with your ObGyn as well, did not next 2 days. Please avoid constipation. ED Critical Care Critical Care No at [phone]
[2017-02-19 18:33] LABS: HEMOGLOBIN 14.8 g/dL (12.2-16.2); LYMPH # 2.7 K/mm3 (0.7-4.5); LYMPH % 30.8 % (10-50.0)
[2017-02-19 18:39] LABS: URINE BILIRUBIN - DIPSTICK NEGATIVE (NEG); URINE BLOOD NEGATIVE (NEG)
[2017-02-19 18:42] LABS: STOOL OCCULT BLOOD POSITIVE (NEG)
[2017-02-19 19:15] VITALS: BP 145/104
[2017-02-20] MEDS ORDERED: COLACE GENERIC100 MG PO (18:08)
== END 2017-02-19 19:16 | disposition home or self-care (01) ==
LOC: ER 16:44
PROVIDERS: Emergency Medicine
DX: K92.2 Gastrointestinal hemorrhage, unspecified (principal); K64.0 First degree hemorrhoids; Z33.1 Pregnant state, incidental
CPT/HCPCS: G0328